=== PATIENT | male | born 1945 | race Caucasian/White ===

== ENCOUNTER 2020-02-11 12:45 | Inpatient (IN) | payer OTHER ==
[~2020-02-11] VITALS: Ht 175.3 cm; Wt 92.3 kg
[2020-02-11 10:54] LABS: BASOPHILS % (AUTO) 0.6 % (0.0-5.0); EOSINOPHILS % (AUTO) 1.6 % (0.0-8.0); HEMATOCRIT 38.4 % (42-54); MEAN CORPUSCULAR HGB CONC 32.8 g/dL (32.0-36.0); MEAN CORPUSCULAR VOLUME 88.5 fL (79-99); MONOCYTES % (AUTO) 7.6 % (3.0-13.0); NEUTROPHILS % (AUTO) 55.8 % (40.0-77.0); PLATELET COUNT (AUTO) 186 K/uL (130-400); RED BLOOD CELL COUNT(AUTO) 4.34 MIL/uL (4.50-6.20); RED CELL DISTRIBUTION WIDTH 12.3 % (11.0-15.5); WHITE BLOOD COUNT (AUTO) 6.8 K/uL (4.8-10.8)
[2020-02-11 10:57] LABS: APPEARANCE,URINE Clear (CLEAR); BILIRUBIN,URINE Negative (NEGATIVE); COLOR,URINE Yellow (YELLOW); GLUCOSE, URINE (UA) Negative (NEGATIVE); KETONES,URINE Negative (NEGATIVE); LEUKOCYTE ESTERASE ,URINE Negative (NEGATIVE); NITRATE,URINE Negative (NEGATIVE); OCCULT BLOOD,URINE Negative (NEGATIVE); PROTEIN,URINE Negative (NEGATIVE); UROBILINOGEN,URINE 0.2 mg/dL (0.2-1.0)
[2020-02-11 11:01] LABS: POTASSIUM 4.1 mmol/L (3.5-5.1)
[2020-02-11 11:25] LABS: INR 0.97 (0.85-1.15); PROTHROMBIN TIME 10.5 SEC (9.6-11.6)
[2020-02-15 13:53] VITALS: BP 132/59
[2020-02-15] MEDS ORDERED: ESCI10TA PO (16:12)
[2020-02-15] MEDS ORDERED: SIMV40TA59 PO (16:12)
[2020-02-15] MEDS ORDERED: TRAZ-187 PO (16:12)
[2020-02-15] MEDS ORDERED: TAMS-1 PO (16:12)
[2020-02-15] MEDS ORDERED: NAPR-1023 PO (16:12)
[2020-02-15] MEDS ORDERED: FINA5TAB41 PO (16:12)
[2020-02-15] MEDS ORDERED: KRIL500C PO (16:12)
[2020-02-15] MEDS ORDERED: FERR-82 PO (16:12)
[2020-02-15] MEDS ORDERED: MULT-1296 PO (16:12)
[2020-02-18] VITALS (28 sets, daily range): BP systolic 94–144; BP diastolic 47–71
[2020-02-18] MEDS ORDERED: LACTATED RINGERS 1000ML 1,000 ML IV ONE ×2 (08:46→13:55)
[2020-02-18] MEDS: CEFAZOLIN SODIUM 1 GM VIAL IVP SCH ×3 (09:18→17:19)
[2020-02-18] MEDS ORDERED: KETOROLAC TROMETHAMINE 30MG/ML ONE (09:27)
[2020-02-18] MEDS ORDERED: CELECOXIB 200 MG CAP ONE (09:27)
[2020-02-18] MEDS ORDERED: OXYCODONE HCL 10 MG TAB.SR.12H PO ONE (09:28)
[2020-02-18] MEDS ORDERED: TRANEXAMIC ACID 1000MG/10ML ONE ×2 (10:04→13:52)
[2020-02-18] MEDS ORDERED: CEFAZOLIN SODIUM 1 GM VIAL ONE ×2 (10:04→16:59)
[2020-02-18] MEDS ORDERED: LIDOCAINE PF 2% 5ML ABBOJECT ONE (10:08)
[2020-02-18] MEDS ORDERED: SUCCINYLCHOLINE CHLORIDE 20 MG/ML 10 ML VIAL ONE (10:08)
[2020-02-18] MEDS ORDERED: GLYCOPYRROLATE 1 MG/5 ML SYRINGE ONE (10:09)
[2020-02-18] MEDS ORDERED: NEOSTIGMINE 5MG/5ML SYR IV ONE (10:09)
[2020-02-18] MEDS ORDERED: MIDAZOLAM HCL 1 MG/ML 2ML VIAL ONE (10:09)
[2020-02-18] MEDS ORDERED: ONDANSETRON HCL 4 MG/2 ML VIAL ONE (10:09)
[2020-02-18] MEDS ORDERED: PROPOFOL 10 MG/ML 20ML VIAL IV ONE (10:09)
[2020-02-18] MEDS ORDERED: DEXAMETHASONE SOD PHOSPHATE 10MG/ML 1ML VIAL ONE (10:09)
[2020-02-18] MEDS ORDERED: ROCURONIUM 10MG/1ML SYR 10 MG/ML ML ONE (10:09)
[2020-02-18] MEDS ORDERED: FENTANYL CITRATE PF 50 MCG/1 ML 2ML VIAL ONE (10:10)
[2020-02-18] MEDS ORDERED: MEPERIDINE-PF 25 MG/ML SYG ONE (10:12)
[2020-02-18] MEDS ORDERED: ROPIVACAINE 0.5% 5MG/ML 30ML IJ ONE (10:27)
[2020-02-18] MEDS ORDERED: EPHEDRINE SULFATE 50 MG/ML AMPULE ONE (11:01)
[2020-02-18] MEDS ORDERED: CALCIUM CARBONATE 500 MG TABLET PO PRN (12:45)
[2020-02-18] MEDS ORDERED: KETOROLAC TROMETHAMINE 15MG/ML IV PRN (12:45)
[2020-02-18] MEDS ORDERED: OXYCODONE HCL 5 MG TAB PO PRN (12:45)
[2020-02-18] MEDS ORDERED: TRAMADOL HCL 50 MG TABLET PO PRN (12:45)
[2020-02-18] MEDS ORDERED: LIDOCAINE HCL-MPF 1% 2ML VIAL IV PRN (12:45)
[2020-02-18] MEDS ORDERED: ONDANSETRON HCL 4 MG/2 ML VIAL IVP PRN (12:45)
[2020-02-18] MEDS ORDERED: POTASSIUM CHLORIDE 20MEQ/100ML 100 ML IV PRN (12:45)
[2020-02-18] MEDS ORDERED: FERROUS FUMARATE 324 MG TABLET PO PRN (12:45)
[2020-02-18] MEDS ORDERED: DiphenhydrAMINE HCL 50 MG/ML VIAL IVP PRN (12:45)
[2020-02-18] MEDS ORDERED: POTASSIUM CHLORIDE 20 MEQ ERTAB PO PRN (12:45)
[2020-02-18] MEDS: ACETAMINOPHEN EXTRA STRENGTH 500 MG TABLET PO SCH ×2 (12:45→20:14)
[2020-02-18] MEDS ORDERED: POTASSIUM CHLORIDE 10% ELIXIR 20 MEQ/15 ML UDCUP PO PRN (12:45)
[2020-02-18] MEDS: SODIUM CHLORIDE 0.9% 1000ML 1,000 ML IV SCH ×2 (14:39→23:14)
[2020-02-18] MEDS: OXYCODONE HCL 5 MG TAB PO PRN (20:15)
[2020-02-18] MEDS: ASPIRIN 81MG TAB.CHEW PO SCH (20:15)
[2020-02-18] MEDS: CELECOXIB 200 MG CAP PO SCH (20:15)
[2020-02-18] MEDS: FAMOTIDINE 20MG TAB 20 MG TAB PO SCH (20:15)
[2020-02-18] MEDS: PREGABALIN 25 MG CAP PO SCH (20:15)
[2020-02-18] MEDS: TRAZODONE HCL 100 MG TABLET PO SCH (20:15)
[2020-02-18] MEDS: SIMVASTATIN 20 MG TABLET PO SCH (20:15)
[2020-02-18] MEDS ORDERED: NON-FORMULARY MEDICATION 1 EACH (Simvastatin (Zocor) 40 MG) PO SCH (21:00)
[2020-02-18] MEDS ORDERED: TAMSULOSIN HCL 0.4 MG CAP.ER.24H PO SCH (21:00)
[2020-02-19] MEDS: HYDROMORPHONE HCL 2 MG/ML VIAL IVP PRN ×6 (00:25→05:52)
[2020-02-19] MEDS: CEFAZOLIN SODIUM 1 GM VIAL IVP SCH (02:04)
[2020-02-19 03:30] VITALS: BP 106/49
[2020-02-19 04:11] LABS: HEMATOCRIT 32.1 % (42-54); MEAN CORPUSCULAR HEMOGLOBIN 29.1 pg (27.0-33.0); MEAN CORPUSCULAR VOLUME 88.2 fL (79-99); RED BLOOD CELL COUNT(AUTO) 3.64 MIL/uL (4.50-6.20); RED CELL DISTRIBUTION WIDTH 12.1 % (11.0-15.5); WHITE BLOOD COUNT (AUTO) 12.5 K/uL (4.8-10.8)
[2020-02-19] MEDS: ACETAMINOPHEN EXTRA STRENGTH 500 MG TABLET PO SCH ×3 (04:19→20:09)
[2020-02-19 04:28] LABS: CREATININE 1.1 mg/dL (0.5-1.5); POTASSIUM 4.1 mmol/L (3.5-5.1)
[2020-02-19 08:11] VITALS: BP 122/54
[2020-02-19] MEDS: MULTIVITAMIN TABLET PO SCH (08:39)
[2020-02-19] MEDS: POLYETHYLENE GLYCOL 3350 17 GM POWD.PACK PO SCH (08:39)
[2020-02-19] MEDS: FINASTERIDE 5 MG TABLET PO SCH (08:39)
[2020-02-19] MEDS: PREGABALIN 25 MG CAP PO SCH ×2 (08:39→20:08)
[2020-02-19] MEDS: FAMOTIDINE 20MG TAB 20 MG TAB PO SCH ×2 (08:39→20:07)
[2020-02-19] MEDS: ASPIRIN 81MG TAB.CHEW PO SCH ×2 (08:39→20:07)
[2020-02-19] MEDS: TAMSULOSIN HCL 0.4 MG CAP.ER.24H PO SCH (08:39)
[2020-02-19] MEDS: CELECOXIB 200 MG CAP PO SCH ×2 (08:39→20:07)
[2020-02-19] MEDS: OXYCODONE HCL 5 MG TAB PO PRN ×2 (08:40→12:00)
[2020-02-19] MEDS: SODIUM CHLORIDE 0.9% 1000ML 1,000 ML IV SCH (08:44)
[2020-02-19] MEDS ORDERED: NON-FORMULARY MEDICATION 1 EACH (Multivitamin/Iron/Folic Acid (Centrum Adults Tablet) 1 EA PO SCH (09:00)
[2020-02-19] MEDS ORDERED: NON-FORMULARY MEDICATION 1 EACH (Escitalopram Oxalate (Lexapro) 10 MG) PO SCH (09:00)
[2020-02-19] MEDS ORDERED: NON-FORMULARY MEDICATION 1 EACH (Krill Oil 500 MG) PO SCH (09:00)
[2020-02-19] MEDS ORDERED: NON-FORMULARY MEDICATION 1 EACH (Ferrous Sulfate (Iron) 325 MG) PO SCH (09:00)
[2020-02-19] MEDS: KRILL OIL 500 MG PO SCH (09:00)
[2020-02-19 11:32] VITALS: BP 111/43
[2020-02-19 16:31] VITALS: BP 133/40
[2020-02-19 20:05] VITALS: BP 116/44
[2020-02-19] MEDS: TRAZODONE HCL 100 MG TABLET PO SCH (20:07)
[2020-02-19] MEDS: SIMVASTATIN 20 MG TABLET PO SCH (20:09)
[2020-02-19 23:42] VITALS: BP 97/42
[2020-02-20 03:51] VITALS: BP 104/46
[2020-02-20] MEDS: ACETAMINOPHEN EXTRA STRENGTH 500 MG TABLET PO SCH ×2 (05:51→13:26)
[2020-02-20 08:00] VITALS: BP 121/48
[2020-02-20] MEDS: KRILL OIL 500 MG PO SCH (09:00)
[2020-02-20] MEDS: TAMSULOSIN HCL 0.4 MG CAP.ER.24H PO SCH (09:00)
[2020-02-20] MEDS: FINASTERIDE 5 MG TABLET PO SCH (09:20)
[2020-02-20] MEDS: PREGABALIN 25 MG CAP PO SCH (09:21)
[2020-02-20] MEDS: CELECOXIB 200 MG CAP PO SCH (09:21)
[2020-02-20] MEDS: MULTIVITAMIN TABLET PO SCH (09:21)
[2020-02-20] MEDS: FAMOTIDINE 20MG TAB 20 MG TAB PO SCH (09:21)
[2020-02-20] MEDS: ASPIRIN 81MG TAB.CHEW PO SCH (09:21)
[2020-02-20] MEDS: POLYETHYLENE GLYCOL 3350 17 GM POWD.PACK PO SCH (09:23)
[2020-02-20 11:00] VITALS: BP 111/47
[2020-02-20] MEDS ORDERED: HYDR-4457 PO (14:53)
[2020-02-20] MEDS ORDERED: ASPI-1005 PO (14:53)
[2020-02-20 16:00] VITALS: BP 118/49
[2020-02-21] MEDS ORDERED: BISACODYL 10 MG SUPP.RECT RC PRN (12:45)
== END 2020-02-20 17:30 | disposition home health service (06) | DRG 470 ==
LOC: DAHIP 02-18 08:15 → EDSTATUS 02-18 12:45 → 3AH 02-18 14:38
PROVIDERS: ADMIT Orthopaedic Surgery; ATTEND Orthopaedic Surgery
PROC: 0SRD0J9 Replacement of Left Knee Joint with Synthetic Substitute, Cemented, Open Approach (ICD-10-PCS; principal; 2020-02-18 11:20)
DX: M17.12 Unilateral primary osteoarthritis, left knee (principal); E78.5 Hyperlipidemia, unspecified; G89.29 Other chronic pain; M54.9 Dorsalgia, unspecified; Z20.828 Contact with and (suspected) exposure to other viral communicable diseases; Z83.3 Family history of diabetes mellitus; Z88.5 Allergy status to narcotic agent
CPT/HCPCS: 36415; 80048; 81003; 85025; 85027; 85610; 87641; 88305; 88311; 97039; G0378; J0330; J0690; J1100; J1170; J1885; J2001; J2175; J2250; J2405; J2704; J2710; J2795; J3010; J3490; J7030; J7120; U0003

== ENCOUNTER → 2023-03-15 | Outpatient (CLI) | payer OTHER ==
[~2023-03-15] MED LIST: ASPI-1005 PO; ESCI10TA PO; FERR-82 PO; FINA5TAB41 PO; HYDR-4457 PO; KRIL500C PO; MULT-1296 PO; SIMV40TA59 PO; TAMS-1 PO; TRAZ-187 PO
== END | disposition home or self-care (01) ==
LOC: RAH 12:49
PROVIDERS: ATTEND Student in an Organized Health Care Education/Training Program
DX: C61 Malignant neoplasm of prostate (principal); M47.816 Spondylosis without myelopathy or radiculopathy, lumbar region
CPT/HCPCS: 78306; A9503

== ENCOUNTER 2023-07-16 11:43 | Emergency (ER) | payer OTHER, MEDICARE ==
[~2023-07-16] VITALS: Ht 175.3 cm; Wt 84.4 kg
[2023-07-16] MEDS ORDERED: METH4TAB3 PO (12:50)
[2023-07-16] MEDS: DEXAMETHASONE SOD PHOSPHATE 4 MG/ML 1ML VIAL IM ONE (13:05)
[2023-07-16] MEDS: KETOROLAC 60 MG VIAL (30MG/ML) IM ONE (13:06)
[2023-07-16 13:13] VITALS: BP 121/51; PULSE 76; RESP 18; O2SAT 96
== END 2023-07-16 13:40 | disposition home or self-care (01) ==
LOC: EDH 11:43
DX: M16.12 Unilateral primary osteoarthritis, left hip (principal); E78.00 Pure hypercholesterolemia, unspecified; F32.A Depression, unspecified; Z79.82 Long term (current) use of aspirin; Z79.899 Other long term (current) drug therapy; Z88.5 Allergy status to narcotic agent; Z98.890 Other specified postprocedural states; Z85.46 Personal history of malignant neoplasm of prostate
CPT/HCPCS: 99284; 73502; 96372 ×2; J1100; J1885

== ENCOUNTER → 2023-10-20 | Outpatient (CLI) | payer OTHER ==
[~2023-10-20] MED LIST changes: +METH4TAB3 PO
== END | disposition home or self-care (01) ==
LOC: RAH 12:32
PROVIDERS: ATTEND Internal Medicine Hematology & Oncology
DX: C61 Malignant neoplasm of prostate (principal)
CPT/HCPCS: 78306; A9503